=== PATIENT | female | born 1990 | race African-American/Black ===

== ENCOUNTER 2016-12-18 05:18 | Inpatient (IN) | payer MEDICAID, OTHER ==
[~2016-12-18] VITALS: Ht 172.7 cm; Wt 87.1 kg
[2016-12-18] MEDS ORDERED: DEXT 5%/LR + PITOCIN 20UNITS/L 1,000 ML IV SCH ×2 (06:02→06:04)
[2016-12-18] MEDS ORDERED: LACTATED RINGERS 1,000 ML IV SCH (06:02)
[2016-12-18] MEDS ORDERED: CARBOPROST TROMETHAMINE 250 MCG/ML AMPUL IM PRN (06:15)
[2016-12-18] MEDS ORDERED: METHYLERGONOVINE MALEATE 0.2 MG/ML IM PRN ×2 (06:15)
[2016-12-18] MEDS ORDERED: ACETAMINOPHEN WITH CODEINE 300/30MG TABLET PO PRN ×2 (06:15)
[2016-12-18] MEDS ORDERED: LANOLIN OINT 0.25 GM TUBE TOP PRN (06:15)
[2016-12-18] MEDS ORDERED: IBUPROFEN 400MG TABLET PO PRN (06:15)
[2016-12-18] MEDS ORDERED: RHO(D) IMMUNE GLOBULIN 300 MCG/SYR IM PRN (06:15)
[2016-12-18] MEDS ORDERED: PREN-88 PO (06:35)
[2016-12-18] MEDS ORDERED: FERR-63 PO (06:35)
[2016-12-18 07:24] LABS: BASOPHILS % 0.3 % (0.0-2.0); EOSINOPHILS % 1.4 % (0.0-5.0); HEMATOCRIT. 34.5 % (36.0-48.0); LYMPHOCYTES % 37.5 % (20.0-50.0); MEAN PLATELET VOLUME 8.8 fl (7.4-10.4); MONOCYTES % 9.3 % (2.0-8.0); NEUTROPHILS % 51.5 % (40.0-76.0); PLATELET 207 x1000/uL (130-400); RED BLOOD CELL COUNT 4.16 mill/uL (4.2-5.4); RED CELL DISTRIBUTION WIDTH 13.8 % (11.6-14.6)
[2016-12-18 07:35] LABS: PROTHROMBIN TIME 10.2 sec
[2016-12-18 07:54] LABS: GLUCOSE URINE 3+ (NEGATIVE); KETONES URINE 1+ (NEGATIVE); LEUKOCYTE ESTERASE URINE TRACE (NEGATIVE); NITRITE URINE NEGATIVE (NEGATIVE); OCCULT BLOOD URINE 3+ (NEGATIVE); PH URINE 7.5 (4.5-8.0); PROTEIN URINE TRACE (NEGATIVE); SPECIFIC GRAVITY URINE 1.013 (1.005-1.030); UROBILINOGEN URINE 0.2 E.U./dL (0.2-1.0)
[2016-12-18 08:09] LABS: *AMPHETAMINES SCREEN URINE NEGATIVE (NEGATIVE); *BARBITURATES SCREEN URINE NEGATIVE (NEGATIVE); *BENZODIAZEPINES SCREEN URINE NEGATIVE (NEGATIVE); *COCAINE SCREEN URINE NEGATIVE (NEGATIVE); CANNABINOID URINE SCREEN NEGATIVE (NEGATIVE); METHADONE URINE SCREEN NEGATIVE (NEGATIVE); OPIATES URINE SCREEN NEGATIVE (NEGATIVE); PHENCYCLIDINE URINE SCREEN NEGATIVE (NEGATIVE)
[2016-12-18 08:11] LABS: CLARITY URINE BLOODY (CLEAR); COLOR URINE BLOODY (YELLOW)
[2016-12-18 08:30] VITALS: BP 96/60
[2016-12-18 09:30] VITALS: BP 100/49
[2016-12-18] MEDS: IBUPROFEN 800MG TABLET PO PRN ×2 (09:32→15:50)
[2016-12-18] MEDS: PRENATAL VIT/FE FUMARATE/FA TABLET PO SCH (09:32)
[2016-12-18 13:26] LABS: HEPATITIS B SURFACE ANTIGEN NEGATIVE; RUBELLA IGG 85.9 IU/mL (4.99-10)
[2016-12-18 15:30] VITALS: BP 97/58
[2016-12-18 20:00] VITALS: BP 106/63
[2016-12-18] MEDS: DOCUSATE SODIUM 100MG CAPSULE PO SCH (21:00)
[2016-12-19 04:00] VITALS: BP 103/60
[2016-12-19 07:04] LABS: HEMATOCRIT 31.6 % (36.0-48.0); HEMOGLOBIN 11.1 g/dL (12.0-16.0)
[2016-12-19 07:42] VITALS: BP 109/59
[2016-12-19] MEDS: PRENATAL VIT/FE FUMARATE/FA TABLET PO SCH (08:12)
[2016-12-19] MEDS: IBUPROFEN 800MG TABLET PO PRN ×3 (12:34→19:42)
[2016-12-19 16:01] VITALS: BP 108/65
[2016-12-19 19:35] VITALS: BP 95/60
[2016-12-19] MEDS: DOCUSATE SODIUM 100MG CAPSULE PO SCH (19:42)
[2016-12-20 04:30] VITALS: BP 101/63
[2016-12-20 08:30] VITALS: BP 108/68
[2016-12-20] MEDS ORDERED: TETANUS, DIPHTHERIA, PERTUSSIS VAC/PF 0.5ML (>7YR OLD) IM ONE (09:00)
[2016-12-20] MEDS: PRENATAL VIT/FE FUMARATE/FA TABLET PO SCH (09:18)
== END 2016-12-20 16:15 | disposition home or self-care (01) | DRG 560 ==
LOC: L&D 05:18 → OBSVTOIN 05:18 → 7EST PP/OB 08:20
PROVIDERS: ADMIT Specialist; ATTEND Specialist
PROC: 10E0XZZ Delivery of Products of Conception, External Approach (ICD-10-PCS; principal; 2016-12-20)
DX: O80 Encounter for full-term uncomplicated delivery (principal); Z23 Encounter for immunization; Z37.0 Single live birth; Z3A.40 40 weeks gestation of pregnancy
CPT/HCPCS: 36415; 80305; 81001; 85014; 85018; 85025; 85610; 85730; 86592; 86762; 86850; 86900; 87340; 90715; J2590; J7120

== ENCOUNTER 2025-05-03 22:28 | Emergency (ER) | payer MEDICAID, OTHER ==
[~2025-05-03] VITALS: Ht 165.1 cm; Wt 65.0 kg
[~2025-05-03 22:28] MED LIST: FERR-63 PO; PREN-88 PO
[2025-05-03 22:32] VITALS: O2SAT 98
[2025-05-03 22:45] VITALS: BP 113/63; PULSE 58; RESP 13; TEMP 36.7; O2SAT 99
[2025-05-03 23:28] LABS: BASOPHILS % 1.1 % (0.0-2.0); EOSINOPHILS % 1.0 % (0.0-5.0); HEMATOCRIT. 39.4 % (36.0-48.0); HEMOGLOBIN. 13.2 g/dL (12.0-16.0); LYMPHOCYTES % 39.9 % (20.0-50.0); MEAN PLATELET VOLUME 8.0 fl (7.4-10.4); MONOCYTES % 7.4 % (2.0-8.0); NEUTROPHILS % 50.6 % (40.0-76.0); PLATELET 214 x1000/uL (130-400); RED BLOOD CELL COUNT 4.55 mill/uL (4.2-5.4); RED CELL DISTRIBUTION WIDTH 13.0 % (11.6-14.6)
[2025-05-03 23:41] LABS: CLARITY URINE CLEAR (CLEAR); COLOR URINE YELLOW (YELLOW); GLUCOSE URINE NEGATIVE (NEGATIVE); KETONES URINE NEGATIVE (NEGATIVE); LEUKOCYTE ESTERASE URINE TRACE (NEGATIVE); NITRITE URINE NEGATIVE (NEGATIVE); OCCULT BLOOD URINE NEGATIVE (NEGATIVE); PH URINE 8.5 (4.5-8.0); PROTEIN URINE NEGATIVE (NEGATIVE); SPECIFIC GRAVITY URINE 1.013 (1.005-1.030); UROBILINOGEN URINE 1.0 E.U./dL (0.2-1.0)
[2025-05-03 23:42] LABS: HCG SCREEN NEGATIVE
[2025-05-03 23:43] LABS: CREATININE 0.9 mg/dL (0.6-1.0); UREA NITROGEN BLOOD 12 mg/dL (9-23)
[2025-05-03 23:45] LABS: ASPARTATE AMINOTRANSFERASE 12 IU/L (<34); BILIRUBIN DIRECT 0.2 mg/dL (<=3.0); BILIRUBIN TOTAL 0.7 mg/dL (0.1-1.0); PROTEIN TOTAL 6.9 g/dL (6.0-8.3)
[2025-05-04] MEDS: ONDANSETRON HCL 4MG/2ML INJ IV ONE (00:09)
[2025-05-04] MEDS: SODIUM CHLORIDE 0.9% 1,000 ML IV ONE (00:09)
[2025-05-04 00:31] LABS: WBC URINE 0-2 /hpf (0-2)
[2025-05-04 00:32] LABS: BACTERIA URINE 1+; RBC URINE 0-2 /hpf (0-2); SQUAMOUS EPITHELIAL CELL URINE FEW /lpf (RARE/1+)
[2025-05-04] MEDS ORDERED: ENOX40SY27 SQ (01:36)
[2025-05-04] MEDS ORDERED: CEFP100T8 MT (01:36)
[2025-05-04] MEDS: CEPHALEXIN 250MG CAPSULE PO ONE (02:13)
[2025-05-04] MEDS ORDERED: ONDA4TAB50 MT (16:58)
[2025-05-04] MEDS ORDERED: LOPE2CAP MT (16:58)
== END 2025-05-04 02:50 | disposition home or self-care (01) ==
LOC: ER 22:28 → CANBEDREQ 05-04 01:57 → ER 05-04 02:50
DX: I82.890 Acute embolism and thrombosis of other specified veins (principal); N83.202 Unspecified ovarian cyst, left side; Z20.822 Contact with and (suspected) exposure to COVID-19
CPT/HCPCS: 80076; 80048; 81003; 84703; 83690; 85025; 36415; 76830; 76856; 93005; 99285; 81025; 96361; 96374; 87426; J2405; J7030; Z7610

== ENCOUNTER 2025-05-04 12:56 | Emergency (ER) | payer MEDICAID ==
[~2025-05-04] VITALS: Ht 172.7 cm; Wt 65.0 kg
[~2025-05-04 12:56] MED LIST changes: +CEFP100T8 MT; +ENOX40SY27 SQ
[2025-05-04 13:03] VITALS: O2SAT 99
[2025-05-04 14:31] LABS: BASOPHILS % 1.0 % (0.0-2.0); EOSINOPHILS % 1.1 % (0.0-5.0); HEMATOCRIT. 37.5 % (36.0-48.0); HEMOGLOBIN. 12.7 g/dL (12.0-16.0); LYMPHOCYTES % 39.7 % (20.0-50.0); MEAN PLATELET VOLUME 8.1 fl (7.4-10.4); MONOCYTES % 7.9 % (2.0-8.0); NEUTROPHILS % 50.3 % (40.0-76.0); PLATELET 195 x1000/uL (130-400); RED BLOOD CELL COUNT 4.29 mill/uL (4.2-5.4); RED CELL DISTRIBUTION WIDTH 13.5 % (11.6-14.6)
[2025-05-04 14:44] LABS: CREATININE 0.8 mg/dL (0.6-1.0)
[2025-05-04 14:45] LABS: UREA NITROGEN BLOOD 8 mg/dL (9-23)
[2025-05-04 14:47] LABS: ASPARTATE AMINOTRANSFERASE 12 IU/L (<34); BILIRUBIN DIRECT 0.3 mg/dL (<=3.0); BILIRUBIN TOTAL 1.2 mg/dL (0.1-1.0); PROTEIN TOTAL 6.7 g/dL (6.0-8.3)
[2025-05-04] MEDS: ACETAMINOPHEN 500MG TABLET PO ONE (14:50)
[2025-05-04] MEDS: SODIUM CHLORIDE 0.9% 1,000 ML IV ONE (14:50)
[2025-05-04] MEDS: LOPERAMIDE HCL 2MG CAPSULE PO ONE (14:50)
[2025-05-04] MEDS: ONDANSETRON HCL 4MG/2ML INJ IV ONE (14:50)
[2025-05-04] MEDS: FAMOTIDINE 20MG/2ML VIAL IV ONE (14:50)
[2025-05-04 14:51] LABS: B-HCG QUANTITATIVE < 1 mIU/mL (<6)
[2025-05-04] MEDS ORDERED: ONDA4TAB50 MT (16:58)
[2025-05-04] MEDS ORDERED: LOPE2CAP MT (16:58)
[2025-05-04] MEDS ORDERED: METOCLOPRAMIDE HCL 10MG/2ML VIAL IV ONE (17:00)
[2025-05-04 17:13] VITALS: BP 112/72; PULSE 70; RESP 16; TEMP 36.7; O2SAT 99
== END 2025-05-04 17:15 | disposition home or self-care (01) ==
LOC: ER 12:56 → CANBEDREQ 17:04 → ER 17:15
DX: R11.0 Nausea (principal); R19.7 Diarrhea, unspecified; R10.20 Pelvic and perineal pain unspecified side; Z79.899 Other long term (current) drug therapy
CPT/HCPCS: 80076; 80048; 84702; 83690; 83735; 85025; 36415; 74176; 96361; 96374; 96375; 99285; J2405; J7030; Z7610 ×2